=== PATIENT | male | born 1985 | race Caucasian/White ===

== ENCOUNTER 2020-10-15 15:28 | Emergency (ER) | payer MEDICAID, SELFPAY ==
[2020-10-15 15:50] VITALS: BP 151/88; PULSE 103; RESP 100; TEMP 36.2; O2SAT 100; BMI 33.5
--- NOTE | 2020-10-15 15:59 | HMH.EDUTC ---
[facility] – [place] Disposition Clinical Impression: Bronchitis, Viral syndrome, Exposure to COVID-19 virus Disposition: Home, Self-Care Condition on Discharge: Good Instructions: Preventing the Spread of Coronavirus Discharge Instructions Additional Instructions: Drink plenty of fluids. Take tylenol for pain or fever. Return if you begin to have difficulty breathing. Follow up with your regular doctor. GO TO THE ER FOR ANY WORSENING SYMPTOMS Prescriptions: Benzonatate [Tessalon Perle 100mg Cap] 100 mg PO TIDP PRN #30 cap PRN Reason: Cough Transmission Status: Received by [employer] # Azithromycin [Z-Renzo 250mg Tab*] 250 mg PO UD DOSE PK #6 tab Transmission Status: Received by [employer] # Referrals: Rocio Walters [Primary Care Provider] - Time of Disposition: 16:08 Medical Decision Making - Medical Records Medical records reviewed: No: I reviewed the patient's medical records. - Gaetano Inquiry Pt receiving controlled substance: No Vital Signs: 10/15/20 15:50 10/15/20 16:28 Temperature 97.2 F L 97.2 F L Temperature Source Temporal Artery Scan Pulse Rate 103 H Pulse Rate [Right Brachial] 103 H Respiratory Rate 100 H 100 H Blood Pressure 151/88 H Blood Pressure [Right Arm] 151/88 H Blood Pressure Mean [Right Arm] 109 Blood Pressure Source [Right Arm] Automatic Cuff Blood Pressure Position [Right Arm] Sitting 02 Sat by Pulse Oximetry 100 Oxygen Delivery Method Room Air Orders (Tests/Meds): ORDERS Category Date Time Status Covid-19 Nasal PCR Sendout Jay Routine Lab 10/15/20 15:50 Received [facility] [place] HPI - General Stated complaint: sore throat, runny nose soa/covid test Time Seen by Provider: 10/15/20 15:59 - History of Present Illness Provider Complaint: He states that for the past 2 days he has had a cough, chest tightness, and sore throat. He denies any known exposure to covid. - Related Data Previous Rx's Medication Instructions Recorded Mupirocin [Bactroban 2% Ointment 1 applicatio TP TID 7 Days #1 tube 08/12/19 22gm tube] Sulfamethoxazole/Trimethoprim 1 each PO BID 10 Days #20 tab 09/27/19 [Bactrim DS tablet] predniSONE [Prednisone 20mg 20 mg PO BID 4 Days #8 tab 08/12/19 Tab] Azithromycin [Z-Renzo 250mg Tab*] 250 mg PO UD DOSE PK #6 tab 10/15/20 Benzonatate [Tessalon Perle 100mg 100 mg PO TIDP PRN #30 cap 10/15/20 Cap] Allergies Allergy/AdvReac Type Severity Reaction Status Date / Time No Known Allergies Allergy Verified 10/15/20 16:07 [facility] History - Hepatitis A Screen Attestation statement:: This patient has been screened for Hepatitis A risk factors. I have reviewed the patient's past medical history: Yes - Social History Alcohol Intake: current Occupational Status: other ROS Obtained: Yes All systems reviewed & no additional complaints - Constitutional Constitutional: Reports system reviewed and no additional complaints, except as docu - Eyes Eyes: Reports system reviewed and no additional complaints, except as docu - ENT Ears, Nose, Mouth, and Throat: Reports system reviewed and no additional complaints, except as docu - Cardiovascular Cardiovascular: Reports system reviewed and no additional complaints, except as docu - Respiratory Respiratory: Yes system reviewed and no additional complaints, except as docu - Gastrointestinal Gastrointestingal: Reports: system reviewed and no additional complaints, except as docu Physical Exam - General General appearance: alert, in no apparent distress - Head Head exam: atraumatic, normocephalic, normal inspection - Eye Eye exam: Present: normal appearance, PERRL, EOMI - ENT ENT exam: Present: normal exam, normal oropharynx, mucous membranes moist, TM's normal bilaterally, normal external ear exam - Neck Neck exam: Present: normal inspection, full ROM, trachea midline. Absent: meningismus, lymphadenopathy - Chest Chest inspection:
[2020-10-15 16:28] VITALS: BP 151/88; PULSE 103; RESP 100; TEMP 36.2; O2SAT 100
[2020-10-16 14:52] LABS: Adenovirus,PCR Not Detected (NotDetected); Bordetella Pertussis Not Detected (NotDetected); Chlamydophila Pneumoniae, PCR Not Detected (NotDetected); Coronavirus 19, PCR Not Detected (NotDetected); Coronavirus 229E Not Detected (NotDetected); Coronavirus NL63 Not Detected (NotDetected); Coronavirus OC43 Not Detected (NotDetected); Coronovirus HKU1,PCR Not Detected (NotDetected); Human Metapneumovirus Not Detected (NotDetected); Influenza A, PCR Not Detected (NotDetected); Influenza AH1, 2009 Not Detected (NotDetected); Influenza AH1, PCR Not Detected (NotDetected); Influenza AH3,PCR Not Detected (NotDetected); Influenza B, PCR Not Detected (NotDetected); Mycoplasma Pneumoniae, PCR Not Detected (NotDetected); Parainfluenza 1, PCR Not Detected (NotDetected); Parainfluenza 2, PCR Not Detected (NotDetected); Parainfluenza 3, PCR Not Detected (NotDetected); Parainfluenza 4, PCR Not Detected (NotDetected); Respiratory Syncytial Virus Not Detected (NotDetected)
[2020-10-16 16:56] LABS: Rhinovirus/Enterovirus Detected (NotDetected)
== END 2020-10-15 16:30 | disposition home or self-care (01) ==
PROVIDERS: Emergency Provider Nurse Practitioner Family; PCP Nurse Practitioner Family
DX: Z20.828 Contact with and (suspected) exposure to other viral communicable diseases (principal); B34.9 Viral infection, unspecified
CPT/HCPCS: 87581; 87633; 87798; 99201; U0004

== ENCOUNTER 2020-11-26 11:37 | Emergency (ER) | payer MEDICAID, SELFPAY ==
[2020-11-26 12:55] VITALS: BP 142/90; PULSE 76; RESP 20; TEMP 36.7; O2SAT 98; BMI 31.6
--- NOTE | 2020-11-26 13:22 | HMH.EDUTC ---
[facility] [place] Clinical Impression: Exposure to COVID-19 virus Disposition: Home, Self-Care Condition on Discharge: Good Instructions: Preventing the Spread of Coronavirus Discharge Instructions Additional Instructions: Drink plenty of fluids. Take tylenol for pain or fever. Return if you begin to have difficulty breathing. Follow up with your regular doctor. GO TO THE ER FOR ANY WORSENING SYMPTOMS Referrals: Rocio Walters [Primary Care Provider] - Time of Disposition: 13:24 Medical Decision Making - Medical Records Medical records reviewed: No: I reviewed the patient's medical records. - Gaetano Inquiry Pt receiving controlled substance: No Vital Signs: 11/26/20 12:55 11/26/20 13:25 Temperature 98.1 F 98.1 F Temperature Source Oral Pulse Rate 76 Pulse Rate [Right Brachial] 76 Respiratory Rate 20 20 Blood Pressure 142/90 H Blood Pressure [Right Arm] 142/90 H Blood Pressure Mean [Right Arm] 107 Blood Pressure Source [Right Arm] Automatic Cuff Blood Pressure Position [Right Arm] Sitting 02 Sat by Pulse Oximetry 98 Oxygen Delivery Method Room Air Orders (Tests/Meds): ORDERS Category Date Time Status Covid-19 Nasal PCR ([facility]) Routine Lab 11/26/20 12:55 Received [facility] [place] - General Stated complaint: covid exposure, no symptoms Time Seen by Provider: 11/26/20 13:22 - History of Present Illness Provider Complaint: He was exposed to covid-19 last week. He denies any symptoms, but he needs a covid test. - Related Data Previous Rx's Medication Instructions Recorded Mupirocin [Bactroban 2% Ointment 1 applicatio TP TID 7 Days #1 tube 08/12/19 22gm tube] Sulfamethoxazole/Trimethoprim 1 each PO BID 10 Days #20 tab 08/12/19 [Bactrim DS tablet] predniSONE [Prednisone 20mg 20 mg PO BID 4 Days #8 tab 08/12/19 Tab] Azithromycin [Z-Renzo 250mg Tab*] 250 mg PO UD DOSE PK #6 tab 10/15/20 Benzonatate [Tessalon Perle 100mg 100 mg PO TIDP PRN #30 cap 10/15/20 Cap] Allergies Allergy/AdvReac Type Severity Reaction Status Date / Time No Known Allergies Allergy Verified 10/15/20 16:07 [facility] History - Hepatitis A Screen Attestation statement:: This patient has been screened for Hepatitis A risk factors. I have reviewed the patient's past medical history: Yes - Social History Alcohol Intake: never Occupational Status: other ROS Obtained: Yes All systems reviewed & no additional complaints - Constitutional Constitutional: Reports system reviewed and no additional complaints, except as docu - Eyes Eyes: Reports system reviewed and no additional complaints, except as docu - ENT Ears, Nose, Mouth, and Throat: Reports system reviewed and no additional complaints, except as docu - Cardiovascular Cardiovascular: Reports system reviewed and no additional complaints, except as docu - Respiratory Respiratory: Reports system reviewed and no additional complaints, except as docu - Gastrointestinal Gastrointestingal: Reports: system reviewed and no additional complaints, except as docu Physical Exam - General General appearance: alert, in no apparent distress - Head Head exam: atraumatic, normocephalic, normal inspection - Eye Eye exam: Present: normal appearance, PERRL, EOMI - ENT ENT exam: Present: normal exam, normal oropharynx, mucous membranes moist, TM's normal bilaterally, normal external ear exam - Neck Neck exam: Present: normal inspection, full ROM, trachea midline. Absent: meningismus, lymphadenopathy - Chest Chest inspection: Present: normal inspection, symmetric chest wall rise. Absent: tenderness - Respiratory Respiratory exam: Present: normal lung sounds bilaterally. Absent: respiratory distress - Cardiovascular Cardiovascular exam: Present: regular rate, normal rhythm. Absent: JVD - Abdominal Exam Abdominal exam: Present: soft, normal bowel sounds. Absent: distention, tenderness, guarding - Extremities
--- NOTE | 2020-11-26 13:23 | PC.NURSE ---
PATIENT WAS WAITING IN CAR TO WATCH CHILDREN WHILE WAS BEING SEEN. REGISTERED WHEN SHE REGISTERED.
[2020-11-26 13:25] VITALS: BP 142/90; PULSE 76; RESP 20; TEMP 36.7; O2SAT 98
== END 2020-11-26 13:30 | disposition home or self-care (01) ==
PROVIDERS: Emergency Provider Nurse Practitioner Family; PCP Nurse Practitioner Family
DX: Z20.822 Contact with and (suspected) exposure to COVID-19 (principal)
CPT/HCPCS: 99202; G0463; U0003

== ENCOUNTER 2023-10-06 19:55 | Emergency (ER) | payer MEDICAID, SELFPAY ==
[2023-10-06 19:56] VITALS: BP 171/98; PULSE 107; RESP 18; TEMP 36.6; O2SAT 97; BMI 32.8
--- NOTE | 2023-10-06 20:32 | XR_ITS ---
PROCEDURE INFORMATION: Exam: XR Left Foot Exam date and time: 10/06/2023 8:33 PM Age: 38 years old Clinical indication: Patient HX: States he woke up with pain left foot/ankle. Denies injury; Additional info: Ankle and foot pain superiorly TECHNIQUE: Imaging protocol: Radiologic exam of the left foot. Views: 3 or more views. COMPARISON: LEAJW/OLT MRI-LOW EXT ANY JOINT W/O-LT 10/28/2016 7:57 AM FINDINGS: Bones/joints: Normal. Soft tissues: Normal. IMPRESSION: No acute findings.
--- NOTE | 2023-10-06 20:32 | XR_ITS ---
PROCEDURE INFORMATION: Exam: XR Left Ankle Exam date and time: 10/06/2023 8:31 PM Age: 38 years old Clinical indication: Patient HX: States he woke up with pain left foot/ankle. Denies injury; Additional info: Ankle and foot pain superiorly TECHNIQUE: Imaging protocol: Radiologic exam of the left ankle. Views: 3 or more views. COMPARISON: LEAJW/OLT MRI-LOW EXT ANY JOINT W/O-LT 10/28/2016 7:57 AM FINDINGS: Bones/joints: Normal. Soft tissues: Normal. IMPRESSION: No acute findings.
--- NOTE | 2023-10-06 20:46 | HMH.EDGENADL ---
Discharge Plan Disposition Patient Disposition: Home, Self-Care Chief Complaint: Extremity Injury, Lower Prescriptions Prescriptions: No Action prednisone 20 MG tablet 20 mg PO BID 4 Days Qty: 8 0RF sulfamethoxazole-trimethoprim 1 EACH tablet 1 each PO BID 10 Days Qty: 20 0RF mupirocin 22 GM ointment 1 applicatio TP TID 7 Days Qty: 1 0RF azithromycin 250 MG tablet 250 mg PO UD DOSE PK Qty: 6 0RF Rx Instructions: Take two (2) tablets today, then one (1) tablet days #2 thru #5 benzonatate 100 MG capsule 100 mg PO TIDP PRN (Reason: Cough) Qty: 30 0RF Referrals Follow up/Referrals: Sumeet Ortez MD [Primary Care Provider] - See instructions Activity Restrictions/Add. Instructions Additional Instructions/Restrictions: Take Tylenol 1000 mg every 6 hours (4 times daily) and ibuprofen 400 mg every 6 hours (4 times daily) as needed with food and water to prevent GI upset and kidney damage. See your family doctor regarding this visit to the emergency department. Clinical Impressions Clinical Impression: Acute ankle pain Qualifiers: Laterality: left Qualified Code(s): M25.572 - Pain in left ankle and joints of left foot Discharge ED Provider: Manuel Magana General Adult HPI General Chief complaint: Extremity Injury, Lower Stated complaint: LT foot swelling painful Time Seen by Provider: 10/06/23 20:03 Mode of Arrival: Ambulatory Source of Information: Patient Limitations: No Limitations Description of Symptoms (Recalled from ER Triage Doc. by RN): pt reports left ankle/foot pain since Thursday, no known injury, reports pain has worsened today that he has to use crutches because he is unable to bear weight. History of Present Illness HPI narrative: 38-year-old male no relevant medical history presenting with left ankle pain. Started a few days prior to arrival, has not seen his family doctor. Atraumatic. Patient states it hurts on the top of his foot, hurts with bearing weight, took ibuprofen and that helped moderately. Related Data Previous Rx's Medication Instructions Recorded mupirocin 2 % topical ointment 1 applicatio TP TID 7 days #1 tube 08/12/19 prednisone 20 mg tablet 20 mg PO BID 4 days #8 tabs 08/12/19 sulfamethoxazole 800 1 each PO BID 10 days #20 tabs 08/12/19 mg-trimethoprim 160 mg tablet azithromycin 250 mg tablet 250 mg PO UD DOSE PK #6 tabs 10/15/20 benzonatate 100 mg capsule 100 mg PO TIDP PRN Cough #30 caps 10/15/20 Allergies Allergy/AdvReac Type Severity Reaction Status Date / Time No Known Allergies Allergy Verified 10/15/20 16:07 [facility] Disclaimer: The information contained in this section may have been updated after the patient was seen, as this information can be updated by other users. Social History Smoking Status: Never smoker alcohol intake: never current occupational status: other Travel in the last 8 weeks: None ROS Obtained: Yes All systems reviewed & no additional complaints except as documented Physical Exam General General appearance: alert and in no apparent distress Head Head exam: atraumatic and normocephalic Eye Eye exam: Present normal appearance, PERRL and EOMI ENT ENT exam: Present mucous membranes moist Neck Neck exam: Present normal inspection, full ROM and trachea midline Respiratory Respiratory exam: Absent respiratory distress, wheezes, stridor, accessory muscle use or prolonged expiratory phase Cardiovascular Cardiovascular exam: Present normal rhythm Abdominal Exam Abdominal exam: Present soft; Absent distention, tenderness, guarding, rebound, rigidity or normal bowel sounds Extremities Exam Extremities exam: Present full ROM, tenderness and other (No evidence of deformity, ecchymoses. Neurovascular intact. Tenderness over navicular.); Absent edema Neurological Exam Neurological exam: Present alert, oriented X3, CN II-XII intact and normal gait; Absent motor sensory deficit Skin Skin exam:
[2023-10-06 20:59] VITALS: BP 116/81; PULSE 77; O2SAT 96
[2023-10-06 21:01] VITALS: BP 114/75; PULSE 76; O2SAT 97
[2023-10-06 21:29] VITALS: BP 118/75; PULSE 69; RESP 18; TEMP 36.8; O2SAT 96
[2023-10-06 21:42] LABS: Uric Acid 7.1 mg/dl (3.5-8.5)
== END 2023-10-06 21:30 | disposition home or self-care (01) ==
PROVIDERS: Emergency Provider Emergency Medicine; PCP Family Medicine
DX: M25.572 Pain in left ankle and joints of left foot (principal)
CPT/HCPCS: 73610; 73630; 84550; 99283

== ENCOUNTER 2024-04-05 12:00 | Emergency (ER) | payer MEDICAID, SELFPAY ==
[2024-04-05 12:10] VITALS: BP 138/86; PULSE 86; RESP 18; TEMP 36.6; O2SAT 99; BMI 30.4
[2024-04-05] MEDS: TET/DIPHTH/PERT-ADULT 0.5ML SYRINGE 0.5 ML IM (12:34)
--- NOTE | 2024-04-05 12:35 | ED_ITS ---
Discharge Plan Disposition Patient Disposition: Home, Self-Care Condition: Good Prescriptions Prescriptions: New amoxicillin-pot clavulanate 875-125 mg Tablet 1 tab PO Q12H 7 Days Qty: 14 0RF Referrals Follow up/Referrals: Sumeet Ortez MD [Primary Care Provider] - See instructions Activity Restrictions/Add. Instructions Additional Instructions/Restrictions: Suture instructions: ?You have required stitches today. Please read the following instructions so you know how to care for them: ?1. Keep wound area dry for the first 24 hours. 2?? May clean gently with mild soap and water, after 48 hours to prevent crusting over suture knots. 3. You may shower if your provider gives permission but do not take a bath until the skin is healed.. 4. Never leave a wet dressing or Band-Aid on your stitches as this allows bacteria to reach the area and may cause infection. Band-aids can cause the wound to sweat and not recommended to wear for long periods of time Watch for signs of infection: ? Increasing redness, tenderness or warmth around the suture site ? Unusual swelling around the site ? Appearance of pus around each suture or any red streaks ? Fever If you develop any of the above signs or symptoms of infection, Follow up with Family Physician immediately 5. Suture removal in _10-12___days 6. Return to [facility] or follow up with family doctor for removal. This can be done by any medical provider dur?ing regular hours on Thursday through Thursday, by appointment. Clinical Impressions Clinical Impression: Laceration Instructions Patient Instructions: DI for Laceration Repair Discharge ED Provider: Effie Boston [facility] [place] General Stated complaint: cut on left thumb Mode of Arrival: Ambulatory Source of Information: Patient Limitations: No Limitations Time Seen by Provider: 04/05/24 12:15 Description of Symptoms (Recalled from Triage Doc. by RN): Pt was cutting something and cut laceration on left thumb. HEENT Symptoms (Recalled from RN notes): No Resp Symptoms (Recalled from RN notes): No Skin Symptoms (Recalled from RN notes): Yes MS Symptoms (Recalled from RN notes): No Functional Status (Recalled from RN notes): n/a History of Present Illness Provider Complaint: Patient states that he was using a knife to cut a tie and it slipped and caught him in the left inside of his thumb causing laceration States that he can still feel everything and move and bend his finger but noticed the laceration needed stitches so he came in Related Data Previous Rx's Medication Instructions Recorded amoxicillin 875 mg-potassium 1 tab PO Q12H 7 days #14 tabs 04/05/24 clavulanate 125 mg tablet Allergies Allergy/AdvReac Type Severity Reaction Status Date / Time No Known Allergies Allergy Verified 04/05/24 12:26 Worker's Comp Is this a Worker's Comp case?: No PFSH [facility] Disclaimer: The information contained in this section may have been updated after the patient was seen, as this information can be updated by other users. Social History Smoking Status: Never smoker alcohol intake: never current occupational status: other Travel in the last 8 weeks: None ROS Obtained: Yes All systems reviewed & no additional complaints except as documented and Yes Systems reviewed as appropriate & no additional complaints except as documented ENT Ears, Nose, Mouth, and Throat: Reports system reviewed and no additional complaints, except as documented and Reports as per HPI Cardiovascular Cardiovascular: Reports system reviewed and no additional complaints, except as documented and Reports as per HPI Respiratory Respiratory: Reports system reviewed and no additional complaints, except as documented and Reports as per HPI Gastrointestinal Gastrointestingal: Reports system reviewed and no additional complaints, except as documented and as per HPI Integumentary/Breasts Skin/Breast: Reports system reviewed and no additional complaints, except as documented, Reports as per HPI and Reports other (laceration to left thumb) Physical Exam General General appearance: alert and in no apparent distress ENT ENT exam: Present mucous membranes moist Respiratory Respiratory exam: Present normal lung sounds bilaterally; Absent respiratory distress or wheezes Cardiovascular Cardiovascular exam: Present regular rate, normal rhythm and irregular rhythm Expanded Upper Extremity Exam Left: Hand exam: Present laceration Hand L/R front image: 2 1. laceration (laceration noted patient could move, bend and give thumbs up without difficulty denies numbness and tingling) Neurological Exam Neurological exam: Present alert, oriented X3 and normal gait Medical Decision Making Gaetano Inquiry Pt receiving controlled substance: No Gaetano was queried for this patient: No Vital Signs: 04/05/24 12:10 Temperature 97.9 F Temperature Source Oral Pulse Rate [Right Radial] 86 Respiratory Rate 18 Blood Pressure [Right Arm] 138/86 Blood Pressure Mean [Right Arm] 103 Blood Pressure Source [Right Arm] Automatic Cuff Blood Pressure Position [Right Arm] Sitting 02 Sat by Pulse Oximetry 99 Oxygen Delivery Method Room Air Orders (Tests/Meds): ED MEDICATIONS Discontinued Medications Generic Name Dose Route Start Last Admin Trade Name Freq PRN Reason Stop Dose Admin Tetanus/Reduced Diphtheria/Acell Pertussis 0.5 ml 04/05/24 12:26 04/05/24 12:34 Tet/Diphth/Pert-Adult 0.5ml Syringe IM 04/05/24 12:27 0.5 ml .ONCE ONE Administration Procedures Laceration Laceration 1: Site: thumb Side (If applicable): left Size (cm): 2 Description: linear Depth: simple, single layer Local Anesthetic: lidocaine 1% Amount of anesthesia used (mL): 2 Pre-repair: wound explored and irrigated extensively Skin layer closed with: nylon Size (cm): 4-0 Number of sutures: 7 Technique: simple, interrupted (wound edges approximated well)
--- NOTE | 2024-04-05 12:57 | PC.NURSE ---
Provider placed 7 stitch in the inside of left thumb.
[2024-04-05 12:58] VITALS: BP 138/86; PULSE 86; RESP 18; TEMP 36.6; O2SAT 99
== END 2024-04-05 12:58 | disposition home or self-care (01) ==
PROVIDERS: Emergency Provider Nurse Practitioner; PCP Family Medicine
DX: S61.012A Laceration without foreign body of left thumb without damage to nail, initial encounter (principal); W26.0XXA Contact with knife, initial encounter; Z23 Encounter for immunization
CPT/HCPCS: 12001; 90471; 90715; 99213; 99214; G0463

== ENCOUNTER 2024-05-27 16:54 | Emergency (ER) | payer MEDICAID, SELFPAY ==
[2024-05-27 17:10] VITALS: BP 129/89; PULSE 90; RESP 20; TEMP 36.6; O2SAT 100; BMI 31.0
--- NOTE | 2024-05-27 17:11 | XR_ITS ---
PROCEDURE INFORMATION: Exam: XR Right Elbow Exam date and time: 05/27/2024 5:09 PM Age: 39 years old Clinical indication: Pain; Elbow; Right; Additional info: Pain and swelling TECHNIQUE: Imaging protocol: Radiologic exam of the right elbow. Views: 3 or more views. COMPARISON: None. FINDINGS: Bones/joints: No fracture or dislocation. No significant arthropathy. Small posterior olecranon bone spur. Soft tissues: Normal. IMPRESSION: No acute findings.
--- NOTE | 2024-05-27 17:14 | ED_ITS ---
Discharge Plan Disposition Patient Disposition: Home, Self-Care Condition: Good Prescriptions Prescriptions: New methylprednisolone 4 mg Tablets,Dose Pack 4 mg PO DIRECTED 6 Days Qty: 21 0RF Rx Instructions: Take 1 pack as directed for 6 days cephalexin 500 mg capsule 500 mg PO QID Qty: 40 0RF No Action trazodone 50 mg tablet 50 mg PO HS Patient Comments: TAKE 1 TABLET BY MOUTH EVERY NIGHT phentermine 37.5 mg tablet 37.5 mg PO DAILY Patient Comments: TAKE 1 TABLET BY MOUTH EVERY MORNING BEFORE BREAKFAST levothyroxine 100 mcg tablet 100 mcg PO DAILY Patient Comments: TAKE 1 TABLET BY MOUTH DAILY topiramate 50 mg tablet 50 mg PO BID Patient Comments: TAKE 1 TABLET BY MOUTH TWICE DAILY Referrals Follow up/Referrals: Sid Cobian DO [Staff Physician] - See instructions Sumeet Ortez MD [Primary Care Provider] - See instructions Activity Restrictions/Add. Instructions Additional Instructions/Restrictions: Rest the extremity, Wear the shalini wrap for compression, Elevate the extremity as tolerated while you are resting. Take the medication as directed. Follow up with Dr. Cobian (orthopedics). I put in a referral but you need to call his office and schedule an appointment. Follow up with your regular doctor. GO TO THE ER FOR ANY WORSENING SYMPTOMS Clinical Impressions Clinical Impression: Olecranon bursitis, right elbow, Elbow pain, right Instructions Patient Instructions: DI for Elbow Pain, DI for Elbow Bursitis, How to Apply an Elastic Wrap on Elbow Discharge ED Provider: Florian Broderick [facility] General Stated complaint: RT elbow pain Time Seen by Provider: 05/27/24 17:14 History of Present Illness Provider Complaint: He states that he has had swelling at the tip of his elbow for the past 3 days. He denies any fall or trauma. Related Data Home Medications Medication Instructions Recorded Confirmed levothyroxine 100 mcg tablet 100 mcg PO DAILY 05/27/24 05/27/24 phentermine 37.5 mg tablet 37.5 mg PO DAILY 05/27/24 05/27/24 topiramate 50 mg tablet 50 mg PO BID 05/27/24 05/27/24 trazodone 50 mg tablet 50 mg PO HS 05/27/24 05/27/24 Previous Rx's Medication Instructions Recorded cephalexin 500 mg capsule 500 mg PO QID #40 caps 05/27/24 methylprednisolone 4 mg tablets in 4 mg PO DIRECTED 6 days #21 tabs 05/27/24 a dose pack Allergies Allergy/AdvReac Type Severity Reaction Status Date / Time No Known Allergies Allergy Verified 04/05/24 12:26 [facility] Disclaimer: The information contained in this section may have been updated after the patient was seen, as this information can be updated by other users. Medical History (Updated 05/27/24 @ 18:13 by Florian Broderick APRN) Thyroid disease Surgical History (Updated 05/27/24 @ 17:22 by Kandice Simon RN) H/O gastric sleeve Social History Smoking Status: Never smoker alcohol intake: never current occupational status: other Travel in the last 8 weeks: None ROS Obtained: Yes All systems reviewed & no additional complaints except as documented Constitutional Constitutional: Denies chills and Denies fever(s) Eyes Eyes: Denies eye discharge ENT Ears, Nose, Mouth, and Throat: Denies dizziness, Denies otalgia and Denies sore throat Cardiovascular Cardiovascular: Denies chest pain Respiratory Respiratory: Denies shortness of breath, Denies chest congestion, Denies cough, Denies stridor and Denies wheezing Gastrointestinal Gastrointestingal: Denies nausea or vomiting Musculoskeletal Musculoskeletal: Reports as per HPI Integumentary/Breasts Skin/Breast: Reports redness, Denies rash and Denies wounds Neurologic Neurologic: Denies dizziness and Denies paresthesias Allergic/Immunologic Allergic/Immunologic: Denies wheezing Physical Exam General General appearance: alert and in no apparent distress Head Head exam: atraumatic, normocephalic and normal inspection Eye Eye exam: Present normal appearance, PERRL and EOMI ENT ENT exam: Present normal exam, normal oropharynx, mucous membranes moist, TM's normal bilaterally and normal external ear exam Neck Neck exam: Present normal inspection, full ROM and trachea midline; Absent meningismus or lymphadenopathy Chest Chest inspection: Present normal inspection and symmetric chest wall rise; Absent tenderness Respiratory Respiratory exam: Present normal lung sounds bilaterally; Absent respiratory distress Cardiovascular Cardiovascular exam: Present regular rate and normal rhythm; Absent JVD Abdominal Exam Abdominal exam: Present soft and normal bowel sounds; Absent distention, tenderness or guarding Extremities Exam Extremities exam: Present normal capillary refill; Absent calf tenderness Expanded Upper Extremity Exam Right: Shoulder exam: Present normal inspection and full ROM; Absent tenderness over AC joint Arm exam: Present normal inspection and full ROM; Absent tenderness, swelling, abrasion, laceration, ecchymosis, deformity, crepitus or erythema Elbow exam: Present full ROM, tenderness, swelling and erythema; Absent abrasion, laceration, ecchymosis, deformity, crepitus, dislocation, effusion, pain w/ pronation/supination or tenderness over radial head Forearm/Wrist exam: Present normal inspection and full ROM; Absent tenderness, tenderness over anatomical snuff box or pain with axial thumb loading Hand exam: Present normal inspection and full ROM; Absent tenderness Neuromotor exam: Normal wrist extension, thumb opposition, thumb IP flexion, thumb adduction and fingers 2-5 abduction Neurosensory exam: Normal radial nerve, ulnar nerve and median nerve Vascular exam: Normal capillary refill, radial pulse and ulnar pulse Back Exam Back exam: Present normal inspection; Absent tenderness Neurological Exam Neurological exam: Present alert and oriented X3 Psychiatric Psychiatric exam: Present normal affect and normal mood Skin Skin exam: Present warm, dry, intact and normal color Lymphatic Lymphatic Findings: no adenopathy Medical Decision Making Medical Records Medical records reviewed: No I reviewed the patient's medical records. Gaetano Inquiry Pt receiving controlled substance: No Orders (Tests/Meds): ORDERS Category Date Time Status Elbow XR right minimum 3 views [XR elbow RT min 3V] Exams 05/27/24 17:11 Ordered Stat
[2024-05-27 18:16] VITALS: BP 129/89; PULSE 90; RESP 20; TEMP 36.6; O2SAT 100
== END 2024-05-27 18:18 | disposition home or self-care (01) ==
PROVIDERS: Emergency Provider Nurse Practitioner Family; PCP Family Medicine
DX: M70.21 Olecranon bursitis, right elbow (principal); M25.521 Pain in right elbow
CPT/HCPCS: 73080; 99212; 99214; G0463